=== PATIENT | male | born 1945 | race Caucasian/White ===

== ENCOUNTER 2017-08-12 10:03 | Day surgery (SDC) | payer OTHER ==
[~2017-08-12] VITALS: Ht 172.7 cm; Wt 136.0 kg
[~2017-08-12 10:03] MED LIST: AMARYL2 MG PO; CARDURA4 MG PO; CARDURA8 MG PO; CINNAMON500 MG PO; COUMADIN4 MG PO; DIOVAN320 MG PO; LANTUS 10100 UNITS/ SC; LANTUS 3 M100 UNITS1 SC; PRILOSEC20 MG PO; VITAMIN D2000 UNIT PO; WELLBUTRIN75 MG PO; ZOLOFT100 MG PO
[2017-08-12 10:32] VITALS: BP 162/75
[2017-08-12 10:50] LABS: HEMATOCRIT 33.6 % (38.0-50.0); HEMOGLOBIN 10.6 G/DL (12.5-16.6); MCH 30.1 PG (29.0-34.0); MCHC 31.5 G/DL (30.0-36.0); MCV 95.5 FL (86-99); PLATELET COUNT 182 K/uL (156-360); RBC DIS.WIDTH-SD 45.6 % (39-53); RED BLOOD COUNT 3.52 M/uL (4.00-5.50); WHITE BLOOD COUNT 7.3 K/uL (4.1-10.2)
[2017-08-12 10:58] LABS: INTER. NORMALIZED RATIO 1.9
[2017-08-12 11:17] LABS: CHLORIDE 112 MEQ/L (99-109); CREATININE 3.4 MG/DL (0.6-1.3); GFR ESTIMATE (CALCULATED) 19 mL/min/ (58.99-99999); GLUCOSE 124 mg/dL (70-99); POTASSIUM 5.4 MEQ/L (3.7-5.4); SODIUM 138 MEQ/L (136-147); UREA NITROGEN (BUN) 61 mg/dL (9-23)
[2017-08-12] MEDS ORDERED: NORCO 5/3251 TABLET PO (22:56)
[2017-08-13 00:44] VITALS: BP 149/72
[2017-08-13 07:36] VITALS: BP 117/61
== END 2017-08-13 09:40 | disposition home or self-care (01) ==
LOC: SDC 10:03 → 2SOUTH 23:00 → ENRESERV 08-13 00:04 → 2EAST 08-13 00:27
PROVIDERS: Surgery
DX: I12.0 Hypertensive chronic kidney disease with stage 5 chronic kidney disease or end stage renal disease (principal); E11.22 Type 2 diabetes mellitus with diabetic chronic kidney disease; N18.6 End stage renal disease; E66.01 Morbid (severe) obesity due to excess calories; Z68.42 Body mass index [BMI] 45.0-49.9, adult; F41.8 Other specified anxiety disorders; E78.5 Hyperlipidemia, unspecified; E72.12 Methylenetetrahydrofolate reductase deficiency; D64.9 Anemia, unspecified; E21.3 Hyperparathyroidism, unspecified; G47.30 Sleep apnea, unspecified; J44.9 Chronic obstructive pulmonary disease, unspecified; K21.9 Gastro-esophageal reflux disease without esophagitis; Z79.01 Long term (current) use of anticoagulants; Z86.718 Personal history of other venous thrombosis and embolism; Z79.4 Long term (current) use of insulin
CPT/HCPCS: 80048; 82948; 85027; 85610; 87641; C1768; C2628; G0378; J0690; J1170; J1644; J2250; J3010; J7040